=== PATIENT | male | born 1950 | race Hispanic/Latino ===

== ENCOUNTER 2018-01-31 14:53 | Emergency (ER) | payer MEDICARE ==
--- NOTE | 2018-01-31 15:56 | ED PDOC ---
Arrival/HPI - General Chief Complaint: Dizziness/Lightheaded Time Seen by Provider: 01/31/18 15:08 Historian: Patient - History of Present Illness Narrative History of Present Illness (Text): 01/31/18 15:53 67 year old male, whose past medical history includes vertigo, Coronary Artery Disease with 5 stents, and hypertension, who presents to the Emergency Department complaining of dizziness today. [place] when [place] became [place], where he was evaluated by [place] clinic [place]. Patient denies any fever, chills, chest pain, shortness of breath, nausea, vomiting, diarrhea, urinary symptoms, back pain, neck pain, headache, or any other complaints. Time/Duration: Prior to Arrival Symptom Onset: Gradual Symptom Course: Unchanged Activities at Onset: Light Context: Other (cruise ship) Past Medical History - Provider Review Nursing Documentation Reviewed: Yes - Cardiac Hx Hypertension: Yes Other/Comment: LBBB - Endocrine/Metabolic Hx Hypothyroidism: Yes - Psychiatric Hx Substance Use: No - Surgical History Other/Comment: Cardiac stent x5 Family/Social History - Physician Review Nursing Documentation Reviewed: Yes Family/Social History: Unknown Family HX Smoking Status: Never Smoked Hx Alcohol Use: No Hx Substance Use: No Allergies/Home Meds Allergies/Adverse Reactions: Allergies prazosin [From [employer]ip[employer]] Allergy (Verified 01/31/18 15:05) NAUSEA Home Medications: Home Meds Medication Instructions Recorded Confirmed Aspirin [Darke Aspirin] 81 mg PO DAILY 01/31/18 01/31/18 Atorvastatin [Lipitor] 10 mg PO DAILY 01/31/18 01/31/18 Isosorbide Dinitrate 30 mg PO DAILY 01/31/18 01/31/18 Levothyroxine [Synthroid] 100 mcg PO DAILY 01/31/18 01/31/18 Meloxicam [Mobic] 15 mg PO DAILY 01/31/18 01/31/18 Spironolactone [Aldactone] 25 mg PO DAILY 01/31/18 01/31/18 Ticagrelor [Brilinta] 90 mg PO BID 01/31/18 01/31/18 Ubidecarenone [Coq-10] 100 mg PO DAILY 01/31/18 01/31/18 Review of Systems - Physician Review All systems were reviewed & negative as marked: Yes - Review of Systems Constitutional: Normal Eyes: Normal ENT: Normal Respiratory: Normal. absent: SOB, Cough Cardiovascular: Normal. absent: Chest Pain Gastrointestinal: Normal. absent: Abdominal Pain, Diarrhea, Nausea, Vomiting Genitourinary Male: Normal. absent: Dysuria, Frequency Musculoskeletal: Normal. absent: Back Pain, Neck Pain Skin: Normal. absent: Rash Neurological: Dizziness. absent: Headache Endocrine: Normal Hemo/Lymphatic: Normal Psychiatric: Normal Physical Exam Vital Signs Temp Pulse Resp BP Pulse Ox 01/31/18 18:32 97.5 F L 70 18 130/70 100 01/31/18 18:31 97.5 F L 70 18 130/70 100 01/31/18 17:25 68 18 127/76 100 01/31/18 15:15 97.6 F 78 17 139/92 H 100 Finger Stick Blood Glucose: 93 - Systems Exam Head: Present: Atraumatic, Normocephalic Pupils: Present: PERRL Extroacular Muscles: Present: EOMI Conjunctiva: Present: Normal Mouth: Present: Moist Mucous Membranes Neck: Present: Normal Range of Motion Respiratory/Chest: Present: Clear to Auscultation, Good Air Exchange. No: Respiratory Distress, Accessory Muscle Use Cardiovascular: Present: Regular Rate and Rhythm, Normal S1, S2. No: Murmurs Abdomen: No: Tenderness, Distention, Peritoneal Signs Back: Present: Normal Inspection Upper Extremity: Present: Normal Inspection. No: Cyanosis, Edema Lower Extremity: Present: Normal Inspection. No: Edema Neurological: Present: GCS=15, CN II-XII Intact, Speech Normal Skin: Present: Warm, Dry, Normal Color. No: Rashes Psychiatric: Present: Alert, Normal Insight, Normal Concentration. No: Oriented x 3 (dizzy) Medical Decision Making ED Course and Treatment: 01/31/18 15:56 Impression: 67 year old male presents to the Emergency Department complaining of dizziness today. Differential Diagnosis included but are not limited to: Vertigo Plan: -- Cardiac ISO -- Labs -- CXR -- UA -- Reassess and disposition Progress Notes: EKG reviewed, shows left bundle branch block. Left axis deviation. 01/31/18 17:04 Chest X-ray reviewed, shows: IMPRESSION: No active disease. 01/31/18 18:15 Pt is walking with steady gate and is experiencing no dizziness. Pt will be d/c home. - Lab Interpretations Lab Results: 01/31/18 15:15 01/31/18 15:15 Lab Results 01/31/18 15:55: Urine Color Yellow, Urine Appearance Clear, Urine pH 6.5, Ur Specific [place] 1.015, Urine Protein Negative, Urine Glucose (UA) Negative, Urine Ketones Trace H, Urine Blood Negative, Urine Nitrate Negative, Urine Bilirubin Negative, Urine Urobilinogen 0.2, Ur Leukocyte Esterase Negative 01/31/18 15:15: Sodium 137, Potassium 3.9, Chloride 100, Carbon Dioxide 28, Anion Gap 13, BUN 23 H, Creatinine 0.9, Est GFR ( Amer) > 60, Est GFR (Non-Af Amer) > 60, Random Glucose 139 H, Calcium 9.2, Phosphorus 2.4 L, Magnesium 2.0, Total Bilirubin 0.7, AST 30, ALT 32, Alkaline Phosphatase 93, Lactate Dehydrogenase 416, Total Creatine Kinase 113, Troponin I 0.02, Total Protein 7.3, Albumin 4.3, Globulin 3.0, Albumin/Globulin Ratio 1.4 01/31/18 15:15: WBC 13.5 H, RBC 4.82, Hgb 14.7, Hct 42.3, MCV 87.8, MCH 30.5, MCHC 34.8, RDW 13.5, Plt Count 244, MPV 9.1, Gran % 86.0 H, Lymph % (Auto) 10.1 L, Kerr % (Auto) 3.4, Eos % (Auto) 0.4 L, Baso % (Auto) 0.1, Gran # 11.57 H, Lymph # (Auto) 1.4, Kerr # (Auto) 0.5, Eos # (Auto) 0.1, Baso # (Auto) 0.01 01/31/18 15:12: POC Glucose (mg/dL) 93 - RAD Interpretation Radiology Orders: 01/31/18 16:06 CHEST ONE VIEW [RAD] Stat - Medication Orders Current Medication Orders: Discontinued Medications Sodium Chloride (Sodium Chloride 0.9%) 1,000 mls @ 999 mls/hr IV .Q1H1M STA Stop: 01/31/18 17:55 Last Admin: 01/31/18 17:14 Dose: 999 mls/hr eMAR Start Stop Document 01/31/18 17:14 [facility] (Rec: 01/31/18 17:14 [facility] [place] [id number]) Intravenous Solution Start Date 01/31/18 Start Time 17:10 End Date 01/31/18 End time 18:10 Total Infusion Time 60 Meclizine HCl (Antivert) 25 mg PO STAT STA Stop: 01/31/18 16:00 Last Admin: 01/31/18 16:20 Dose: 25 mg Disposition/Present on Arrival - Present on Arrival Any Indicators Present on Arrival: No History of DVT/PE: No History of Uncontrolled Diabetes: No Urinary Catheter: No History of Decub. Ulcer: No History Surgical Site Infection Following: None - Disposition Have Diagnosis and Disposition been Completed?: Yes Diagnosis: Dizziness Disposition: HOME/ ROUTINE Disposition Time: 18:32 Patient Plan: Discharge Condition: IMPROVED Discharge Instructions (ExitCare): Vertigo (a Type of Dizziness) Prescriptions: Meclizine [Meclizine*] 25 mg PO Q8 5 Days #15 tab Referrals: PCP,NO [Primary Care Provider] - Follow up with primary Forms: [employer] (Danish)
[2018-01-31 15:57] VITALS: O2SAT 100
[2018-01-31 16:01] LABS: ALB/GLOB RATIO 1.4 (1.1-1.8); ALBUMIN 4.3 g/dL (3.0-4.8); ALT/SGPT 32 U/L (7-56); AST/SGOT 30 U/L (17-59); BLOOD UREA NITROGEN 23 mg/dL (7-21); CALCIUM 9.2 mg/dL (8.4-10.5); GFR NON-AFRICAN AMERICAN > 60
[2018-01-31 16:12] LABS: TROPONIN I 0.02 ng/mL
[2018-01-31 16:24] LABS: BASO # 0.01 K/mm3 (0.0-2.0); BASO % 0.1 % (0.0-3.0); EOS # 0.1 (0.0-0.7); EOS % 0.4 % (1.5-5.0); GRAN # 11.57 (1.4-6.5); HEMOGLOBIN 14.7 g/dL (14.0-18.0); LYMPH # 1.4 (1.2-3.4); LYMPH % 10.1 % (22.0-35.0); MEAN CELL VOLUME 87.8 fl (80.0-105.0); MEAN CORPUSCULAR HEMOGLOBIN 30.5 pg (25.0-35.0); MEAN CORPUSCULAR HGB CONC 34.8 g/dl (31.0-37.0); MEAN PLATELET VOLUME 9.1 fl (7.0-11.0); MONO # 0.5 (0.1-0.6); MONO % 3.4 % (1.0-6.0); RBC 4.82 10^6/uL (3.5-6.1); RED CELL DISTRIBUTION WIDTH 13.5 % (11.5-14.5); WHITE BLOOD COUNT 13.5 10^3/ul (4.5-11.0)
[2018-01-31 16:26] LABS: PH,URINE 6.5 (4.7-8.0); URINE APPEARANCE CLEAR (CLEAR); URINE BILIRUBIN NEGATIVE (NEGATIVE); URINE BLOOD NEGATIVE (NEGATIVE); URINE COLOR YELLOW (YELLOW); URINE GLUCOSE (UA) NEGATIVE (NEGATIVE); URINE LEUKOCYTE ESTERASE NEGATIVE Leu/uL (NEGATIVE); URINE PROTEIN NEGATIVE mg/dL (<30 mg/dL); URINE UROBILINOGEN 0.2 E.U./dL (<1 E.U./dL)
--- NOTE | 2018-01-31 16:44 | RAD ---
Date of service: 01/31/2018 PROCEDURE: CHEST RADIOGRAPH, 1 VIEW HISTORY: Dizziness COMPARISON: None available. FINDINGS: LUNGS: Clear. PLEURA: No pneumothorax or pleural fluid seen. CARDIOVASCULAR: Normal. OSSEOUS STRUCTURES: No significant abnormalities. VISUALIZED UPPER ABDOMEN: Normal. OTHER FINDINGS: None. IMPRESSION: No active disease.
[2018-01-31] MEDS ORDERED: Sodium Chloride 0.9% 1,000 ML IV STA (16:55)
[2018-01-31 18:03] VITALS: RESP 18
[2018-01-31 18:31] VITALS: BP 130/70; PULSE 70; TEMP 97.5
--- NOTE | 2018-02-01 19:58 | CARD ---
APPROVED REPORT Date of service: 01/31/2018 EKG Measurement Heart [id number] <Conclusion> Poor data quality, interpretation may be adversely affected Sinus bradycardia with 1st degree AV block Left bundle branch block Abnormal ECG
== END 2018-01-31 18:35 | disposition home or self-care (01) ==
LOC: ED 14:53
DX: R42 Dizziness and giddiness (principal); I10 Essential (primary) hypertension; I25.10 Atherosclerotic heart disease of native coronary artery without angina pectoris; E03.9 Hypothyroidism, unspecified
CPT/HCPCS: 71045; 80053; 81003; 82550; 82948; 83615; 83735; 84100; 84484; 85025; 93005; 96360; 99285; J7030